=== PATIENT | male | born 1965 | race Caucasian/White ===

== ENCOUNTER → 2020-09-28 | Outpatient (CLI) | payer BC ==
[2020-09-28 14:06] LABS: BASOPHILS ABSOLUTE AUTO 0.07 K/mm3 (0.00-0.23); BASOPHILS PERCENT AUTO 1 % (0-2); EOSINOPHILS PERCENT AUTO 1 % (0-6); Hematocrit 52.2 % (37.0-53.0); Hemoglobin 17.6 g/dL (13.5-17.5); IMMATURE GRAN ABSOLUTE AUTO 0.05 K/mm3 (0.00-0.10); IMMATURE GRAN PERCENT AUTO 0 % (0-1); LYMPHOCYTES ABSOLUTE AUTO 1.82 K/mm3 (0.84-5.20); LYMPHOCYTES PERCENT AUTO 14 % (21-46); MONOCYTES ABSOLUTE AUTO 0.93 K/mm3 (0.16-1.47); MONOCYTES PERCENT AUTO 7 % (4-13); Mean Corpuscular HGB 27.9 pg (26.0-34.0); Mean Corpuscular HGB Conc 33.7 g/dL (31.5-36.5); Mean Corpuscular Volume 83 fL (80-100); NEUTROPHILS PERCENT AUTO 77 % (41-73); Platelet Count 267 K/mm3 (150-400); RDW Coefficient Variation 18.7 % (11.7-14.2); RDW Standard Deviation 52.9 fL (35.1-46.3); Red Blood Cell Count 6.31 M/mm3 (4.30-5.90); White Blood Cell Count 13.17 K/mm3 (4.00-11.30)
[2020-09-28 14:20] LABS: Alanine Aminotransfer (ALT/SGP 23 U/L (12-78); Albumin, Blood 3.9 g/dL (3.4-5.0); Alk Phos 80 U/L (40-126); Anion Gap 11 mmol/L (6-16); Aspartate Aminotrans (AST/SGOT 21 U/L (12-37); Bilirubin, Total 0.6 mg/dL (0.1-1.0); Blood Urea Nitrogen 13 mg/dL (8-24); Bun/Creatinine Ratio 12.1 (12.0-20.0); CO2, Blood 26 mmol/L (21-32); Calcium, Blood 9.5 mg/dL (8.5-10.1); Chloride, Blood 101 mmol/L (98-108); Creatinine, Blood 1.07 mg/dL (0.60-1.20); Globulin, Blood 4.1 g/dL (2.2-4.0); Glomerular Filtration Rate >60 (60-); Glucose, Blood 96 mg/dL (70-99); Potassium, Blood 4.2 mmol/L (3.5-5.5); Sodium, Blood 138 mmol/L (136-145); Troponin I <0.017 ng/mL (0.000-0.040)
== END | disposition home or self-care (01) ==
LOC: LAB EV 14:02 → LAB SHORT 14:02
PROVIDERS: Family Medicine
DX: R55 Syncope and collapse (principal)
CPT/HCPCS: 80053; 84484; 85025

== ENCOUNTER 2021-05-19 18:51 | Emergency (ER) | payer BC ==
[~2021-05-19] VITALS: Ht 182.9 cm; Wt 97.5 kg
== END 2021-05-19 20:07 | disposition home or self-care (01) ==
LOC: ER 18:51
DX: U07.1 COVID-19 (principal)
CPT/HCPCS: 71045; 99283-25

== ENCOUNTER 2021-10-18 11:02 | Inpatient (IN) | payer OTHER ==
[~2021-10-18] VITALS: Ht 182.9 cm; Wt 108.2 kg
[2021-10-18 11:46] LABS: BASOPHILS ABSOLUTE AUTO 0.08 K/mm3 (0.00-0.23); BASOPHILS PERCENT AUTO 1 % (0-2); EOSINOPHILS ABSOLUTE AUTO 0.15 K/mm3 (0.00-0.68); EOSINOPHILS PERCENT AUTO 1 % (0-6); Hematocrit 51.9 % (37.0-53.0); Hemoglobin 17.8 g/dL (13.5-17.5); IMMATURE GRAN ABSOLUTE AUTO 0.11 K/mm3 (0.00-0.10); IMMATURE GRAN PERCENT AUTO 1 % (0-1); LYMPHOCYTES PERCENT AUTO 11 % (21-46); MONOCYTES ABSOLUTE AUTO 1.36 K/mm3 (0.16-1.47); MONOCYTES PERCENT AUTO 9 % (4-13); Mean Corpuscular HGB 32.5 pg (26.0-34.0); Mean Corpuscular HGB Conc 34.3 g/dL (31.5-36.5); Mean Corpuscular Volume 95 fL (80-100); Mean Platelet Volume 11.2 fL (9.1-12.4); NEUTROPHILS ABSOLUTE AUTO 11.16 K/mm3 (1.96-9.15); NEUTROPHILS PERCENT AUTO 77 % (41-73); Platelet Count 342 K/mm3 (150-400); RDW Coefficient Variation 13.6 % (11.7-14.2); Red Blood Cell Count 5.48 M/mm3 (4.30-5.90); White Blood Cell Count 14.46 K/mm3 (4.00-11.30)
[2021-10-18] MEDS ORDERED: NEBI5 PO (11:46)
[2021-10-18 12:12] LABS: Alanine Aminotransfer (ALT/SGP 35 U/L (12-78); Albumin/Globulin Ratio 0.7 (0.8-1.8); Alk Phos 72 U/L (50-136); Anion Gap 8 mmol/L (6-16); Aspartate Aminotrans (AST/SGOT 30 U/L (12-37); Bilirubin, Total 1.4 mg/dL (0.1-1.0); Blood Urea Nitrogen 20 mg/dL (8-24); Bun/Creatinine Ratio 15.4 (12.0-20.0); CO2, Blood 23 mmol/L (21-32); Chloride, Blood 105 mmol/L (98-108); Globulin, Blood 4.5 g/dL (2.2-4.0); Glomerular Filtration Rate 57 (60-); Glucose, Blood 109 mg/dL (70-99); Potassium, Blood 4.1 mmol/L (3.5-5.5); Sodium, Blood 136 mmol/L (136-145); Total Protein, Blood 7.5 g/dL (6.4-8.2); Troponin I <0.015 ng/mL (0.000-0.040)
--- NOTE | 2021-10-18 18:23 | NUR ---
ADMIT PT ARRIVED TO ICU 14 VIA BED AT 1740. PT IS AWAKE, ALERT, AND ORIENTED. PT STOOD UP TO TRANSFER. PT DENIES ANY PAIN, OR SOB AT THIS TIME. PT PLACED ON 4L O2 NC. HR AFIB 130-160'S. ESMOLOL GTT INFUSING AT 125 MCG/KG/MIN INITIALLY. GTT TITRATED UP TO 175 MCG/KG/MIN AT THIS TIME WITHOUT IMPROVEMENT IN HR NOTED. BP STABLE. URINAL AT BEDSIDE. WILL CONTINUE TO MONITOR AND REPORT OFF TO ONCOMING RN.
--- NOTE | 2021-10-18 19:30 | NUR ---
ASSUMED CARE PATIENT LYING IN BED WATCHING TELEVISION W/ 4LPM VIA NC IN PLACE. SPO2 LOW 90'S. PATIENT HAS WALLET AND TABLET ON BEDSIDE TABLE, PHONE IN BED WITH PATIENT. BELONGINGS ARE IN A BAG PLACED IN CUPBOARD OPENING. ESMOLOL GTT @ 200MCG/KG/MIN WITH RATE 130'S-160'S AND IRREGULAR. PATIENT TRACKS TO SOUND AND GREETS STAFF UPON ENTERING THE ROOM. URINAL IS AT BEDSIDE. REPORT COMPLETED WITH DAYSHIFT RN.
[2021-10-18 20:56] LABS: U Amphetamine Screen Not Detected; U Barbituate Screen Not Detected; U Benzodiazapine Screen Not Detected; U Buprenorphine Screen Not Detected; U Cannabinoids Screen Not Detected; U Cocaine Screen Not Detected; U Methadone Screen Not Detected; U Methamphetamine Screen Not Detected; U Opiates Screen Not Detected; U Oxycodone Screen Not Detected; U Phencyclidine Screen Not Detected; U Propoxyphene Screen Not Detected
--- NOTE | 2021-10-18 21:28 | NUR ---
NITRO PARAMETERS CALL MADE TO DR. RODRIGUEZ REGARDING PATIENT'S BP OF 90/58 MAP 75 AND UPCOMING NITRO ORDER FOR 2200. MD NOTIFIED OF CURRENT MEDICATIONS ORDERED AND GIVEN FOR RVR AND ORDERS OBTAINED TO HOLD 2200 DOSE OF NITRO AND PARAMETERS TO HOLD NITRO FOR SBP OF 90 OR LESS.
[2021-10-19 03:23] LABS: Hematocrit 48.3 % (37.0-53.0); Hemoglobin 16.4 g/dL (13.5-17.5); Mean Corpuscular HGB 32.7 pg (26.0-34.0); Mean Corpuscular Volume 96 fL (80-100); Mean Platelet Volume 10.7 fL (9.1-12.4); Platelet Count 279 K/mm3 (150-400); RDW Coefficient Variation 13.7 % (11.7-14.2); Red Blood Cell Count 5.02 M/mm3 (4.30-5.90); White Blood Cell Count 10.37 K/mm3 (4.00-11.30)
[2021-10-19 03:42] LABS: Anion Gap 9 mmol/L (6-16); Blood Urea Nitrogen 20 mg/dL (8-24); Bun/Creatinine Ratio 15.3 (12.0-20.0); CHOL/HDL RATIO 6.1; CO2, Blood 20 mmol/L (21-32); Calcium, Blood 8.6 mg/dL (8.5-10.1); Chloride, Blood 108 mmol/L (98-108); Cholesterol 159 mg/dL (50-200); Creatinine, Blood 1.31 mg/dL (0.60-1.20); Glomerular Filtration Rate 56 (60-); Glucose, Blood 83 mg/dL (70-99); HDL Cholesterol 26 mg/dL (>39); LDL/HDL RATIO 4.4; Low Density Lipoprotein Chol 113 mg/dL (0-110); Magnesium, Blood 2.1 mg/dL (1.6-2.4); Potassium, Blood 4.3 mmol/L (3.5-5.5); Sodium, Blood 137 mmol/L (136-145); Triglycerides 98 mg/dL (30-160); Very Low Density Lipoprot Chol 19 mg/dL (6-32)
--- NOTE | 2021-10-19 06:02 | NUR ---
SHIFT SUMMARY PATIENT REMAINED ON ESMOLOL @ 200MCG/KG/MIN; DIGOXIN 0.5MG X 1 AND 0.25MG X 2 GIVEN THROUGHOUT SHIFT Q6H. HR DECREASED FROM 140'S-160'S DOWN TO 80'S-130'S. A FLUTTER SEEN ON TELEMETRY WITH LOWER RATE. NO CHANGES IN PATIENT SYMPTOMS T/O NIGHT. PATIENT ON 4LPM VIA NC; BRIEFLY INCREASED TO 6LPM AFTER HYPOXIC EPISODE IN MID 80'S FOLLOWING URINAL USE. LUNG SOUNDS ARE MORE COARSE ON 0400 REASSESSMENT THAN EARLIER IN THE NIGHT; POSITIVE FLUID BALANCE OF OVER 1300ML. BT HYPERACTIVE X 4 WITH NO BM DURING SHIFT. NO OTHER CHANGES DURING SHIFT.
[2021-10-19 12:49] LABS: Influenza A, PCR NEGATIVE (NEGATIVE); Influenza B, PCR NEGATIVE (NEGATIVE); Resp Syncytial Virus, PCR NEGATIVE (NEGATIVE); SARS-Cov-2 (COVID-19) PCR, MMC NEGATIVE (NEGATIVE)
--- NOTE | 2021-10-19 16:54 | NUR ---
SHIFT SUMMARY NO ACUTE CHANGES THIS SHIFT. PT HAS REMAINED AWAKE, ALERT, AND ORIENTED THIS SHIFT. PT HAS DENIED ANY CHEST PAIN OR SHORTNESS OF BREATH. PT TITRATED OFF ESMOLOL GTT THIS AM. PT HR REMAINS AFIB 100-130'S. PT HAS RECIEVED METOPROLOL IV PRN. VITAL SIGNS STABLE. PT ON ROOM AIR. IV'S SALINE LOCKED. PT USES URINAL TO VOID INDEPENDENTLY. PT REPOSITIONS SELF IN BED INDEPENDENTLY. PT TOLERATING PO INTAKE WELL. WILL CONTINUE TO MONITOR AND REPORT OFF TO ONCOMING RN.
--- NOTE | 2021-10-19 19:30 | NUR ---
ASSUMED CARE PATIENT LYING IN BED AWAKE AND WATCHING TELEVISION. PHONE, TABLET, AND WALLET ARE ON BEDSIDE TABLE. PATIENT TRACKS TO SOUND AND GREETS STAFF UPON ENTERING ROOM. NO MEDS INF IN EITHER IV. 2LPM VIA NC IN PLACE WITH SPO2 MID 90'S. HR 110'S-140'S IN AFIB. BP HYPERTENSIVE WITH SBP IN 140'S AND MAPS 90'S-100'S. URINAL AT BEDSIDE. REPORT COMPLETED WITH DAYSHIFT RN.
[2021-10-20 03:06] LABS: Hematocrit 50.1 % (37.0-53.0); Hemoglobin 17.1 g/dL (13.5-17.5); Mean Corpuscular HGB 32.3 pg (26.0-34.0); Mean Corpuscular HGB Conc 34.1 g/dL (31.5-36.5); Mean Corpuscular Volume 95 fL (80-100); Mean Platelet Volume 10.7 fL (9.1-12.4); Platelet Count 309 K/mm3 (150-400); RDW Coefficient Variation 13.2 % (11.7-14.2); RDW Standard Deviation 45.7 fL (35.1-46.3); Red Blood Cell Count 5.29 M/mm3 (4.30-5.90); White Blood Cell Count 12.09 K/mm3 (4.00-11.30)
[2021-10-20 03:30] LABS: Albumin, Blood 2.6 g/dL (3.4-5.0); Albumin/Globulin Ratio 0.7 (0.8-1.8); Bilirubin, Total 0.7 mg/dL (0.1-1.0); Bun/Creatinine Ratio 14.1 (12.0-20.0); Calcium, Blood 8.6 mg/dL (8.5-10.1); Creatinine, Blood 1.28 mg/dL (0.60-1.20); Globulin, Blood 3.9 g/dL (2.2-4.0); Phosphorus, Blood 3.6 mg/dL (2.5-4.9); Total Protein, Blood 6.5 g/dL (6.4-8.2)
[2021-10-20 03:31] LABS: C-Reactive Protein, High Sens. 36.1 mg/L (0.000-3.000)
--- NOTE | 2021-10-20 06:24 | NUR ---
SHIFT SUMMARY PATIENT REQUIRED FREQUENT DOSING OF IV METOPROLOL TO KEEP HR AROUND 100. TOTAL OF 30MG IV METOPROLOL T/O SHIFT. PATIENT WAS ON 2LPM VIA NC MOST OF SHIFT BUT REMOVED NC WHILE SLEEPING. NC REMAINED OFF D/T SPO2 MAINTAINING IN MID TO HIGH 90'S WHILE ON RA. NO OTHER MAJOR CHANGES DURING SHIFT.
--- NOTE | 2021-10-20 07:20 | NUR ---
ASSUME CARE: I assumed care of this pt at 0700 after receiving report from security shift manager RN.
--- NOTE | 2021-10-20 07:41 | NUR ---
UPDATE: This RN spoke with Dr. Souza regarding frequency of lopressor pushes and continued afib. Verbal order for Cardiology consult and dorothy huynh.
--- NOTE | 2021-10-20 07:57 | NUR ---
CONSULT: Page left with Dr. Thomas's answering service.
--- NOTE | 2021-10-20 13:01 | NUR ---
NITRO PASTE REMOVED DUE TO HYPOTENSION
--- NOTE | 2021-10-20 18:50 | NUR ---
SHIFT SUMMARY: HR 100-140's with Esmolol at 250. Pt tolerating well; he denies any complaints of chest pain or dyspnea on RA. Two doses of PRN metoprolol given with minimal effect. Nitro paste d/c's due to some hypotensive episodes. Pt up in chair for several hours today with provider's knowledge. Pt using urinal independantly with clear yellow output. No BM today. Good PO intake.
--- NOTE | 2021-10-20 19:05 | NUR ---
Assumed care. Report received from refugio RN. PT resting quietly in bed at this time. VS stable, on RA. IV pumps running Esmolol 250 mcg/kg/min and NS 10 ml/hr. Pt alert and oriented, no acute needs at this time. Will continue to monitor.
[2021-10-21 03:30] LABS: BASOPHILS ABSOLUTE AUTO 0.07 K/mm3 (0.00-0.23); BASOPHILS PERCENT AUTO 1 % (0-2); EOSINOPHILS ABSOLUTE AUTO 0.38 K/mm3 (0.00-0.68); EOSINOPHILS PERCENT AUTO 4 % (0-6); Hematocrit 48.9 % (37.0-53.0); Hemoglobin 16.6 g/dL (13.5-17.5); IMMATURE GRAN ABSOLUTE AUTO 0.06 K/mm3 (0.00-0.10); IMMATURE GRAN PERCENT AUTO 1 % (0-1); LYMPHOCYTES ABSOLUTE AUTO 1.71 K/mm3 (0.84-5.20); LYMPHOCYTES PERCENT AUTO 17 % (21-46); MONOCYTES ABSOLUTE AUTO 0.95 K/mm3 (0.16-1.47); MONOCYTES PERCENT AUTO 9 % (4-13); Mean Corpuscular HGB 32.1 pg (26.0-34.0); Mean Corpuscular HGB Conc 33.9 g/dL (31.5-36.5); Mean Corpuscular Volume 95 fL (80-100); Mean Platelet Volume 10.3 fL (9.1-12.4); NEUTROPHILS ABSOLUTE AUTO 6.92 K/mm3 (1.96-9.15); NEUTROPHILS PERCENT AUTO 69 % (41-73); Platelet Count 320 K/mm3 (150-400); RDW Coefficient Variation 13.2 % (11.7-14.2); RDW Standard Deviation 45.3 fL (35.1-46.3); Red Blood Cell Count 5.17 M/mm3 (4.30-5.90); White Blood Cell Count 10.09 K/mm3 (4.00-11.30)
[2021-10-21 03:50] LABS: Albumin, Blood 2.6 g/dL (3.4-5.0); Anion Gap 7 mmol/L (6-16); Blood Urea Nitrogen 18 mg/dL (8-24); Bun/Creatinine Ratio 13.6 (12.0-20.0); CO2, Blood 23 mmol/L (21-32); Calcium, Blood 8.5 mg/dL (8.5-10.1); Chloride, Blood 108 mmol/L (98-108); Creatinine, Blood 1.32 mg/dL (0.60-1.20); Glomerular Filtration Rate 56 (60-); Glucose, Blood 97 mg/dL (70-99); Magnesium, Blood 2.1 mg/dL (1.6-2.4); Phosphorus, Blood 3.4 mg/dL (2.5-4.9); Potassium, Blood 4.2 mmol/L (3.5-5.5); Sodium, Blood 138 mmol/L (136-145)
--- NOTE | 2021-10-21 06:01 | NUR ---
Shift summary. Pt rested quietly in bed throughout shift, on room air, VS stable. Pt alert and oriented, requires minimal assistance. IV pump settings unchanged, Esmolol running at 250 mcg/kg/min, NS 10 ml/hr. HR trended down during shift, currently 90-120s. See shift assessment for further details. Will continue to monitor and report off to dayshift RN.
--- NOTE | 2021-10-21 07:14 | NUR ---
ASSUMED CARE: PT AWAKE IN BED, APPEARS FLUSTERED, ASKS WHAT IS GOING ON WITH HIM. WANTS TO KNOW PLAN. TOLD HIM THIS RN WOULD REVIEW CHART BUT FROM WHAT WAS REPORTED BY NIGHT RN, HOSPITALIST BELIEVES THAT AFIB IS DRIVEN BY PNEUMONIA AND THAT RESOLVES, AFIB WILL RESOLVE. NIGHT RN STATED HOSPITALIST CANCELLED CARDIOLOGY CONSULT DUE TO THIS. PT IS CURRENTLY ON ESMOLOL GTT AT 250MCG/KG WITH HR OF AFIB AT 112 AT THIS TIME. DENIES FURTHER NEEDS OR CONCERNS.
--- NOTE | 2021-10-21 08:26 | NUR ---
PT COMPLAINED THAT LEFT ARM WAS GETTING ACHEY. THIS IS THE SAME ARM THAT ESMOLOL GTT IS RUNNING THROUGH. ASSESSED SITE AND ARM APPEARS TIGHT AND SWOLLEN. FLUSHED IV AND PT STATES IS NOT PAINFUL, CHECKED BLOOD RETURN AND BLOOD IS EASILY PULLED BACK FROM IV LINE. DISCONNECTED ESMOLOL AND SWITCHED TO ALTERNATE IV SITE. PT ADMITTED THAT WITH IV IN LEFT ARM HE HAD BEEN AVOIDING MOVING ARM MUCH. RELAYED TO PT THAT THIS MAY BE WHY HIS ARM IS SORE. WILL CONTINUE TO MONITOR
--- NOTE | 2021-10-21 10:54 | NUR ---
ESMOLOL GTT TITRATED DOWN TO 225 MCG/KG AND METOPROLOL IV PUSH GIVEN TO ASSIST WITH RATE CONTROL. IT IS NOTED THAT PT'S HR INCREASES TO 130S WITH ACTIVITY. PT STATES HE FEELS SOB. PROVIDED WITH 2L O2 TO ASSIST WITH THIS. WILL CONTINUE TO MONITOR
--- NOTE | 2021-10-21 17:31 | NUR ---
SHIFT SUMMARY: PT CONTINUES ON ESMOLOL GTT, CURRENTLY AT 150MCG/KG AT THIS TIME. HAS REQUIRED 5MG IV METOPROLOL PUSHES EVERY 2 HOURS WELL PO METOPROLOL BID. PT HAS EXPRESSED FRUSTRATION T/O THE DAY WITH THE SLOW PROGRESS. HR CURRENTLY AFIB AT 104. 2L O2 FOR COMFORT. ANTICOAGULATION STARTED TODAY. REASONING FOR THIS EXPLAINED TO PT AND PT AGREEABLE TO THIS TREATMENT
--- NOTE | 2021-10-21 19:10 | NUR ---
Assumed care. Report received from refugio RN. Pt resting in bed, on 02 2L/min via NC, Esmolol running at 150 mcg/kg/min, NS 10 ml/hr. Pt alert and oriented, VS stable. Will continue to monitor.
--- NOTE | 2021-10-22 02:08 | NUR ---
NOTED: PT HAD REMOVED HIS CARDIAC LEADS AND OXYIMETER. WHEN ENTRYING ROOM, PT WAS SITTING ON TOILET WITH ALL WIRES AND TUBINGS DISCONNECTED. PT HAD DISCONNECTED HIS IV'S AND HAD A CLAVE REMOVED FROM LEFT HAND IV. PT WAS BLEEDING FROM IV WITHOUT PT'S ACKNOWLEDGING THAT THIS WAS OCCURRING. PT STATED THAT HE HAD TO URINATE AND NOBODY CAME TO HELP HIM. PT HAD BOTH URINALS WITHIN HIS REACH, AND HAD NOT USED HIS CALL LIGHT TO REQUEST ASSIST. NEW CLAVE PLACED, AND FLUSHED. AFTER RETURNING TO BED, IV'S RESTARTED. PT CAUTIONED TO NOT GET OUT OF BED WITHOUT ASSIST AND TO USE HIS CALL LIGHT WHEN HE NEEDS ASSIST.
[2021-10-22 03:34] LABS: BASOPHILS ABSOLUTE AUTO 0.07 K/mm3 (0.00-0.23); BASOPHILS PERCENT AUTO 1 % (0-2); EOSINOPHILS ABSOLUTE AUTO 0.35 K/mm3 (0.00-0.68); EOSINOPHILS PERCENT AUTO 3 % (0-6); Hematocrit 52.8 % (37.0-53.0); Hemoglobin 17.5 g/dL (13.5-17.5); IMMATURE GRAN ABSOLUTE AUTO 0.05 K/mm3 (0.00-0.10); IMMATURE GRAN PERCENT AUTO 0 % (0-1); LYMPHOCYTES ABSOLUTE AUTO 1.76 K/mm3 (0.84-5.20); LYMPHOCYTES PERCENT AUTO 16 % (21-46); MONOCYTES ABSOLUTE AUTO 1.12 K/mm3 (0.16-1.47); MONOCYTES PERCENT AUTO 10 % (4-13); Mean Corpuscular HGB 32.8 pg (26.0-34.0); Mean Corpuscular HGB Conc 33.1 g/dL (31.5-36.5); Mean Corpuscular Volume 99 fL (80-100); Mean Platelet Volume 10.5 fL (9.1-12.4); NEUTROPHILS ABSOLUTE AUTO 7.78 K/mm3 (1.96-9.15); NEUTROPHILS PERCENT AUTO 70 % (41-73); Platelet Count 277 K/mm3 (150-400); RDW Coefficient Variation 13.2 % (11.7-14.2); RDW Standard Deviation 48.1 fL (35.1-46.3); Red Blood Cell Count 5.33 M/mm3 (4.30-5.90); White Blood Cell Count 11.13 K/mm3 (4.00-11.30)
[2021-10-22 03:57] LABS: Albumin, Blood 2.7 g/dL (3.4-5.0); Albumin/Globulin Ratio 0.7 (0.8-1.8); Bilirubin, Total 0.6 mg/dL (0.1-1.0); Bun/Creatinine Ratio 14.3 (12.0-20.0); Calcium, Blood 8.6 mg/dL (8.5-10.1); Creatinine, Blood 1.33 mg/dL (0.60-1.20); Globulin, Blood 3.9 g/dL (2.2-4.0); Magnesium, Blood 2.5 mg/dL (1.6-2.4); Phosphorus, Blood 3.2 mg/dL (2.5-4.9); Potassium, Blood 4.8 mmol/L (3.5-5.5); Total Protein, Blood 6.6 g/dL (6.4-8.2)
--- NOTE | 2021-10-22 06:05 | NUR ---
Shift summary. Pt rested in bed throughout shift, up to stretch and use urinal several times. On 02, 2 L/min via NC. IV in L/hand and R/ac, Esmolol running at 100 mcg/kg/min. Per Dr. Jones, plan is to titrate esmolol off this am. PO metoprolol ordered Q6PRN to help with rate control. VS stable throughout shift, see shift assessment/notes for further details. Will continue to monitor and report off to dayshift RN.
--- NOTE | 2021-10-22 08:00 | NUR ---
ASSUMING PT CARE: REPORT RECEIVED. PT LAYING IN BED, AWAKES WHEN STAFF ENTERS ROOM. ALERT,MINIMALLY INTERACTIVE, APATHETIC W/ CARE. ESMOLOL @ 50mcg/kg/min. MONITOR INDICATES AFIB W/ HR 98-130s. PRN & SCHEDULED METOPROLOL GIVEN. WILL CONTINUE TO ADDRESS RATE CONTROL W/ PRN METOPROLOL & TITRATE ESMOLOL gtt DOWN PT TOLERATES. WILL CONTINUE TO MONITOR & REPORT APPROPRIATE.
--- NOTE | 2021-10-22 12:15 | NUR ---
HOSP ROUNDING: ISTRATE @ BEDSIDE FOR AM ROUNDS. PER ISTRATE, IF PT REMAINS OFF ESMOLOL, HE CAN BE CHANGED TO PCU STATUS THIS AFTERNOON. MONITOR INDICATES AFIB W/ RATE 90s-120s. PT CONTINUES TO DENY CP, SOB.
--- NOTE | 2021-10-22 16:40 | NUR ---
UPDATED ISTRATE ON PT's POSITIVE PROGRESSION, HR MAINTAINING 130s-90s W/ESMOLOL OFF FOR 5hrs & NO IVP METOPROLOL. PER ISTRATE, CONTINUE TO GIVE IVP METOPROLOL TO MANAGE HR & IF PT CONTINUES TO STABILIZE, HE WILL BE ABLE TO BE DC'D HOME TOMORROW W/ PO ABX. PT UPDATED & SEEMED RECEPTIVE & GLAD TO HEAR HE MAY BE DC'D TOMORROW. WILL CONTINUE TO MONITOR & REPORT APPROPRIATE.
--- NOTE | 2021-10-22 18:47 | NUR ---
SHIFT SUMMARY: PT IS ANXIOUS TO BE DC'D HOME TOMORROW. PT IS ABLE TO STAND & PIVOT TO CHAIR & USE URINAL INDEPENDENTLY. AFIB CONTINUES & HR HAS BEEN CONSISTENTLY 130s-90s AFTER ESMOLOL DC'D. HOWEVER OVER THE PAST 2hrs HR HAS INC MOMENTARILY TO THE 150s WHILE AT REST. PT MEDICATED W/ PRN PO & IV METOPROLOL & RATE HAS SINCE RETURNED TO 130s-90s. PT CONTINUES TO DENY CP OR SOB. WILL DISCUSS W/ ONCOMING RN. SEE PREVIOUS NOTATION FOR PT PROGRESSION.
--- NOTE | 2021-10-22 19:15 | NUR ---
Assumed care. Report received from dayshift RN. Pt in bed at this time, on room air. Pt alert and oriented, call light within reach. VS stable, no acute needs at this time. NS 10ml/hr running. Will continue to monitor.
[2021-10-23 03:36] LABS: BASOPHILS ABSOLUTE AUTO 0.07 K/mm3 (0.00-0.23); BASOPHILS PERCENT AUTO 1 % (0-2); EOSINOPHILS ABSOLUTE AUTO 0.27 K/mm3 (0.00-0.68); EOSINOPHILS PERCENT AUTO 2 % (0-6); Hematocrit 52.8 % (37.0-53.0); Hemoglobin 18.4 g/dL (13.5-17.5); IMMATURE GRAN ABSOLUTE AUTO 0.06 K/mm3 (0.00-0.10); IMMATURE GRAN PERCENT AUTO 1 % (0-1); LYMPHOCYTES ABSOLUTE AUTO 1.88 K/mm3 (0.84-5.20); LYMPHOCYTES PERCENT AUTO 16 % (21-46); MONOCYTES ABSOLUTE AUTO 1.13 K/mm3 (0.16-1.47); MONOCYTES PERCENT AUTO 10 % (4-13); Mean Corpuscular HGB 32.6 pg (26.0-34.0); Mean Corpuscular HGB Conc 34.8 g/dL (31.5-36.5); Mean Platelet Volume 10.5 fL (9.1-12.4); NEUTROPHILS ABSOLUTE AUTO 8.28 K/mm3 (1.96-9.15); NEUTROPHILS PERCENT AUTO 71 % (41-73); Platelet Count 355 K/mm3 (150-400); RDW Coefficient Variation 13.2 % (11.7-14.2); RDW Standard Deviation 44.8 fL (35.1-46.3); Red Blood Cell Count 5.65 M/mm3 (4.30-5.90); White Blood Cell Count 11.69 K/mm3 (4.00-11.30)
[2021-10-23 03:39] LABS: Mean Corpuscular Volume 94 fL (80-100)
[2021-10-23 03:53] LABS: Anion Gap 5 mmol/L (6-16); Blood Urea Nitrogen 18 mg/dL (8-24); Bun/Creatinine Ratio 15.1 (12.0-20.0); CO2, Blood 25 mmol/L (21-32); Calcium, Blood 8.9 mg/dL (8.5-10.1); Chloride, Blood 106 mmol/L (98-108); Creatinine, Blood 1.19 mg/dL (0.60-1.20); Glomerular Filtration Rate >60 (60-); Glucose, Blood 104 mg/dL (70-99); Magnesium, Blood 2.3 mg/dL (1.6-2.4); Phosphorus, Blood 3.2 mg/dL (2.5-4.9); Potassium, Blood 4.1 mmol/L (3.5-5.5); Sodium, Blood 136 mmol/L (136-145)
--- NOTE | 2021-10-23 05:19 | NUR ---
TRANSFER NOTE. PT TRANSFER TO PCU 3. PT ON RA, VS STABLE. PER DR. ESTRADA, ULTRASOUND OF LEFT ARM ORDERED FOR PAIN/REDNESS/SWELLING DURING SHIFT. PT REPORTS 4 OUT OF 10 PAIN AND NUMBNESS IN LEFT HAND. NO OTHER ACUTE NEEDS AT TIME OF TRANSFER, SEE SHIFT ASSESSMENT FOR FURTHER DETAILS.
--- NOTE | 2021-10-23 05:59 | NUR ---
PATIENT TRANSFERRED FROM ICU AT APPROX 0500. VSS. AFIB IN THE LOW 100'S WITH INCREASES WITH MOVEMENT UP TO 120'S BUT BACK DOWN SHORTLY AFTER. ON RA. VODIING WELL PER URINAL. LEFT FOREARM RED,SWOLLEN AND WARM TO TOUCH. IS ANXIOUS TO GO HOME. WILL CONTINUE PLAN OF CARE UNTIL REPORT GIVEN TO JOAQUIN BARTON.
--- NOTE | 2021-10-23 09:05 | NUR ---
UPDATE AT 0900, PT REPORTED A PAIN AT THE IV SITE OF HIS LEFT HAND. PT WAS RECIEIVING [id number] PER EMAR. THIS RN STOPPED THE IV AND ASSESSED THE SITE. IV SITE APPEARED RED AND SLIGHLTY SWOLLEN. IV FLUSHED AND SALINE LOCKED, MED ON STANDBY. DR WREN NOTIFIED THAT SAS DEVELOPER WAS IN THE ROOM GETTING IMAGES OF LEFT ARM. NOTIFIED THAT PT REPORTED "TINGLING OF THE TIPS OF FINGER" OF PT LEFT HAND. DR INSTRUCTED THIS RN TO REMOVE IV IF THE PT HR IS UNDER 105. THIS RN INFORMED DR THAT PT WAS RECIEVING MEDS VIA IV, DR INFORMED THIS RN THT MEDS WILL BE SWITCH TO PO.
[2021-10-23] MEDS ORDERED: METO100ER PO (11:38)
[2021-10-23] MEDS ORDERED: Acetaminophen325 M1 PO (11:39)
[2021-10-23] MEDS ORDERED: ASPI81CH PO (11:40)
[2021-10-23] MEDS ORDERED: ATOR40TA PO (11:40)
[2021-10-23] MEDS ORDERED: CEFP200 PO (11:41)
[2021-10-23] MEDS ORDERED: FURO20 PO (11:41)
[2021-10-23] MEDS ORDERED: Lisinopril2.5 MG PO (11:42)
[2021-10-23] MEDS ORDERED: MELATONIN 3 MG1 EACH PO (11:42)
[2021-10-23] MEDS ORDERED: ONDA4ODT MM (11:44)
[2021-10-23] MEDS ORDERED: XARELTO20 MG PO (11:45)
[2021-10-23] MEDS ORDERED: ALDACTONE25 MG PO (11:46)
[2021-10-23] MEDS ORDERED: VISBIOME 112.51 EACH PO (11:49)
--- NOTE | 2021-10-23 12:14 | NUR ---
DISCHARGE UPDATE DISCHARGE INSTRUCTIONS GONE OVER WITH PT AT 1155. PT DISCHARGED AT 1205 AND LEFT UNIT VIA WHEELCHAIR. PT DISCHARGE PACKET IN BAG ALONG WITH PT BELONGINIGS AND WITH PT DURING DISCHARGE. PT FAMILY MEMBER PICKED PT UP AT THE [facility]. PT WAS ABLE TO TRANSFER SELF TO AND FROM WHEELCHAIR.
== END 2021-10-23 12:12 | disposition home or self-care (01) | DRG 871 ==
LOC: ER 11:02 → ICUW 15:57 → PCU 10-23 05:15
PROVIDERS: Family Medicine; Nurse Practitioner Acute Care; Physician Assistant; ADMIT Hospitalist
DX: A41.9 Sepsis, unspecified organism (principal); J18.9 Pneumonia, unspecified organism; I50.23 Acute on chronic systolic (congestive) heart failure; I48.20 Chronic atrial fibrillation, unspecified; Z20.822 Contact with and (suspected) exposure to COVID-19; E66.01 Morbid (severe) obesity due to excess calories; R91.8 Other nonspecific abnormal finding of lung field; Z86.16 Personal history of COVID-19; Z79.899 Other long term (current) drug therapy; Z87.891 Personal history of nicotine dependence
CPT/HCPCS: 0241U; 36415; 71045; 71046; 71260; 80048; 80053; 80061; 80069; 83735; 83880; 84100; 84145; 84443; 84484; 85025; 85027; 85379; 86141; 93005; 93010; 93306; 93971; 96365-59; 96375-59; 99285-25; A9270; J0696; J1160; J1644; J1940; J7030; J7050; Q9967

== ENCOUNTER 2021-12-16 11:09 | Day surgery (SDC) | payer OTHER ==
[~2021-12-16] VITALS: Ht 182.9 cm; Wt 107.7 kg
[~2021-12-16 11:09] MED LIST: ALDACTONE25 MG PO; ASPI81CH PO; ATOR40TA PO; Acetaminophen325 M1 PO; CEFP200 PO; FURO20 PO; Lisinopril2.5 MG PO; MELATONIN 3 MG1 EACH PO; METO100ER PO; NEBI5 PO; ONDA4ODT MM; VISBIOME 112.51 EACH PO; XARELTO20 MG PO
[2021-12-16] MEDS ORDERED: Amiodarone HCl200 MG PO (11:30)
[2021-12-16] MEDS ORDERED: ENTRESTO 24 MG1 EACH PO (11:30)
[2021-12-16] MEDS ORDERED: Hair, Skin & N1 EACH PO (11:30)
[2021-12-16] MEDS ORDERED: NEBI10 PO (11:31)
--- NOTE | 2021-12-16 13:15 | NUR ---
PT ALERT, AWAKE, AND TALKING. SISTER HERE.
--- NOTE | 2021-12-16 13:50 | NUR ---
pt awake and getting dressed. repeat ekg done, nsr. pt offers no c/o's. saline lock rmoved with catheter intact. discharge instructions reviewed with pt and sister. pt to private vehicle per w/c with one staff.
[2022-02-01] MEDS ORDERED: VITAMIN D3 PO (13:02)
[2022-02-01] MEDS ORDERED: ENTRESTO 24 MG1 EACH PO (13:04)
[2022-02-01] MEDS ORDERED: KAPSPARGO SPRI100 MG PO (13:04)
[2022-02-01] MEDS ORDERED: TESTOSTERONE CYPIONA IM (13:07)
[2022-02-02] MEDS ORDERED: ZINC15 PO (08:33)
== END 2021-12-16 23:31 | disposition home or self-care (01) ==
LOC: MHTC 11:09 → ORD 12:00 → ORSCSDS 12:00 → MHTC 23:31
DX: I48.19 Other persistent atrial fibrillation (principal); I42.9 Cardiomyopathy, unspecified; I45.2 Bifascicular block; I50.9 Heart failure, unspecified; K21.9 Gastro-esophageal reflux disease without esophagitis; Z87.891 Personal history of nicotine dependence
CPT/HCPCS: 92960; 93005; 93010; J2704; J7030

== ENCOUNTER 2022-02-20 23:06 | Inpatient (IN) | payer OTHER ==
[~2022-02-20] VITALS: Ht 180.3 cm; Wt 102.8 kg
[~2022-02-20 23:06] MED LIST changes: +Amiodarone HCl200 MG PO; +ENTRESTO 24 MG1 EACH PO; +Hair, Skin & N1 EACH PO; +KAPSPARGO SPRI100 MG PO; +NEBI10 PO; +TESTOSTERONE CYPIONA IM; +VITAMIN D3 PO; +ZINC15 PO
[2022-02-20] MEDS ORDERED: DIGOX250 MCG PO (23:17)
[2022-02-20 23:31] LABS: BASOPHILS ABSOLUTE AUTO 0.09 K/mm3 (0.00-0.23); BASOPHILS PERCENT AUTO 1 % (0-2); EOSINOPHILS ABSOLUTE AUTO 0.27 K/mm3 (0.00-0.68); EOSINOPHILS PERCENT AUTO 2 % (0-6); Hematocrit 48.4 % (37.0-53.0); Hemoglobin 16.5 g/dL (13.5-17.5); IMMATURE GRAN ABSOLUTE AUTO 0.07 K/mm3 (0.00-0.10); IMMATURE GRAN PERCENT AUTO 1 % (0-1); LYMPHOCYTES ABSOLUTE AUTO 1.65 K/mm3 (0.84-5.20); LYMPHOCYTES PERCENT AUTO 13 % (21-46); MONOCYTES ABSOLUTE AUTO 1.16 K/mm3 (0.16-1.47); MONOCYTES PERCENT AUTO 9 % (4-13); Mean Corpuscular HGB 30.4 pg (26.0-34.0); Mean Corpuscular HGB Conc 34.1 g/dL (31.5-36.5); Mean Corpuscular Volume 89 fL (80-100); Mean Platelet Volume 11.5 fL (9.1-12.4); NEUTROPHILS ABSOLUTE AUTO 9.14 K/mm3 (1.96-9.15); NEUTROPHILS PERCENT AUTO 74 % (41-73); Platelet Count 247 K/mm3 (150-400); RDW Coefficient Variation 15.3 % (11.7-14.2); RDW Standard Deviation 50.1 fL (35.1-46.3); Red Blood Cell Count 5.43 M/mm3 (4.30-5.90); White Blood Cell Count 12.38 K/mm3 (4.00-11.30)
[2022-02-20 23:51] LABS: Albumin, Blood 3.7 g/dL (3.4-5.0); Albumin/Globulin Ratio 0.9 (0.8-1.8); Bilirubin, Total 1.2 mg/dL (0.1-1.0); Bun/Creatinine Ratio 14.3 (12.0-20.0); Calcium, Blood 9.1 mg/dL (8.5-10.1); Creatinine, Blood 1.19 mg/dL (0.60-1.20); Globulin, Blood 4.3 g/dL (2.2-4.0)
--- NOTE | 2022-02-21 02:40 | NUR ---
ASSUMED CARE PT ARRIVED AT APPROX 0240. PT WAS DIAPHORETIC WITH SEVERE CHEST PAIN. HR WAS ELEVATED IN THE 130'S. REPORTING PAIN OF 8-9/10 (SHARP). AT BESIDE TO HELP WITH QUESTIONS. REPORTS THAT HE WAS JUST IN [facility] FOR [facility] ON 02/16 WHERE HE HAS RIGHT WRIST PUNTURE R/L GROIN PUNCTURES. ADVISED NOT TO GET UP OUT OF BED WITHOUT HELP DUE TO PAIN MEDS AND CHEST PAIN. CALL LIGHT IS WITHIN REACH.
[2022-02-21] MEDS ORDERED: CLOP75 PO (02:58)
[2022-02-21] MEDS ORDERED: Isosorbide Mono30 MG PO (02:58)
--- NOTE | 2022-02-21 03:02 | NUR ---
CALLED DR EDGAR REGARDING HEART RATE 130-140'S AND CHEST PAIN. SAID TO WAIT FOR DIGOXIN TO START WORKING AND GIVE FENTYNAL FOR PAIN.
--- NOTE | 2022-02-21 03:13 | NUR ---
CALLED DR EDGAR TO GET 1X DOSE OF FENT. GAVE ORDER OF 1MG OF DILAUDID X1 IV AND 1X DOSE OF FENT 25-50MG IV X1 IF NEEDED IF PAIN NOT RESOLVED. NO HEPARIN CONSULT. DOCTOR HERVE TO CHECK RECENT TROP LAB WHEN RESULTS IN.
[2022-02-21 03:49] LABS: BASOPHILS ABSOLUTE AUTO 0.08 K/mm3 (0.00-0.23); BASOPHILS PERCENT AUTO 1 % (0-2); EOSINOPHILS ABSOLUTE AUTO 0.16 K/mm3 (0.00-0.68); EOSINOPHILS PERCENT AUTO 1 % (0-6); Hematocrit 46.1 % (37.0-53.0); Hemoglobin 15.5 g/dL (13.5-17.5); IMMATURE GRAN ABSOLUTE AUTO 0.09 K/mm3 (0.00-0.10); IMMATURE GRAN PERCENT AUTO 1 % (0-1); LYMPHOCYTES ABSOLUTE AUTO 1.05 K/mm3 (0.84-5.20); LYMPHOCYTES PERCENT AUTO 7 % (21-46); MONOCYTES ABSOLUTE AUTO 1.59 K/mm3 (0.16-1.47); MONOCYTES PERCENT AUTO 11 % (4-13); Mean Corpuscular HGB 30.2 pg (26.0-34.0); Mean Corpuscular HGB Conc 33.6 g/dL (31.5-36.5); Mean Corpuscular Volume 90 fL (80-100); Mean Platelet Volume 11.4 fL (9.1-12.4); NEUTROPHILS ABSOLUTE AUTO 11.97 K/mm3 (1.96-9.15); NEUTROPHILS PERCENT AUTO 80 % (41-73); Platelet Count 232 K/mm3 (150-400); RDW Coefficient Variation 15.7 % (11.7-14.2); RDW Standard Deviation 50.6 fL (35.1-46.3); Red Blood Cell Count 5.13 M/mm3 (4.30-5.90); White Blood Cell Count 14.94 K/mm3 (4.00-11.30)
[2022-02-21 04:11] LABS: Albumin, Blood 3.3 g/dL (3.4-5.0); Albumin/Globulin Ratio 0.9 (0.8-1.8); Bilirubin, Total 1.3 mg/dL (0.1-1.0); Bun/Creatinine Ratio 16.2 (12.0-20.0); Calcium, Blood 8.6 mg/dL (8.5-10.1); Creatinine, Blood 1.05 mg/dL (0.60-1.20); Globulin, Blood 3.7 g/dL (2.2-4.0); Potassium, Blood 4.1 mmol/L (3.5-5.5)
[2022-02-21 04:25] LABS: Digoxin (Lanoxin) 14.19 ug/mL (0.80-2.00)
--- NOTE | 2022-02-21 05:16 | NUR ---
CALLED DR EDGAR REGARDING CRITICAL TROP OF 5450 AND DIGOXIN OF 14.9. ORDER TO DC DIGOXIN.
--- NOTE | 2022-02-21 05:48 | NUR ---
CONTACTED DR EDGAR REGARDING HR IN THE 130 UP TO 160'S. ORDER FOR LOPRESSOR IV 5MG ONE TIME FOR NOW.
--- NOTE | 2022-02-21 06:00 | NUR ---
WHEN PULLING LOPRESSOR FROM [place] AT 0555 PT WAS NOT IN SYSTEM, AND WAS UNABLE TO BE LOCATED IN SEARCH. PHARMACY WAS CONTACTED ABOUT PROBLEM.
--- NOTE | 2022-02-21 06:53 | NUR ---
SHIFT SUMMARY PT IS ALERT AND ORIENTED. BP, TEMP, SPO2 >92% ON 4L NC ARE STABLE. HR HAS BEEN ELEVATED AND WAS REPORTED TO DR EDGAR LOPRESSOR IV GIVEN. REPORTS RESTING CHEST PAIN 3/10 AND SHARP RECURRENT PAIN 8-9/10. MEDICATED PER EMAR. CARDIOLOGY CONSULT WAS CALLED INTO [facility]. CRITICAL LABS WERE CALLED INTO DR EDGAR. PT NOW SITTING AT EDGE OF THE BED LEANING FORWARD AND REPORTS LESS PAIN. CALL LIGHT IS WITHIN REACH.
[2022-02-21 07:45] LABS: Anti-Xa UFH, PHA Monitoring 0.82 IU/mL; International Normalized Ratio 1.19; Prothrombin Time Results 12.4 Sec (9.7-11.5)
--- NOTE | 2022-02-21 15:32 | NUR ---
UPDATE BP LOW. PT ASYMPTOMATIC. PT DENIES ANY CP AT THIS TIME. HR 120-[address] GIBBS CALLED AND UPDATED. NEW ORDERS FOR 250ML BOLUS. WILL CONTINUE TO MONITOR CLOSELY
--- NOTE | 2022-02-21 18:00 | NUR ---
DR. GIBBS TO ROOM TO EVALUATE DECREASING BLOOD PRESSURE AND INCREASED HEART RATE. STAT ECHO ORDERED. WILL CONTINUE TO MONITOR AND TREAT.
--- NOTE | 2022-02-21 18:27 | NUR ---
Shift Summary Assumed care from Sonia @1977. Pt was sitting upright in bed leaning over bedside table. Reports pain radiating to back relieved by leaning over table. HR afib ranging from 120's-150's, very irregular and inconsistent. BP was increased to 119 systolic after 250ml fluid bolus, but decreased back down into the 80's around 1700. He reports occasional chest pain and describes it as "sharp, quick, like a hiccup." Dr. Rocha ordered a STAT echocardiogram that is being performed right now to rule out a pericardial effusion. Results will be called and told to him as they arrive, will pass onto oncoming RN.
[2022-02-21 20:03] LABS: Digoxin (Lanoxin) 2.77 ug/mL (0.80-2.00)
--- NOTE | 2022-02-21 20:30 | NUR ---
UPDATE CRITICAL DIGOXIN CALLED TO THIS RN. CALL PLACED TO DR. GIBBS WITH RESULTS. NO NEW ORDERS AT THIS TIME. PATIENT CONTINUES TO DENY CHEST PAIN AND STATES "IT ONLY HURTS WHEN I BREATHE DEEP". AMIO GTT INFUSING PER EMAR. SOFT BPs. TELE READING AFIB 120s. OTHERWISE PATIENT DENIES NEEDS AT THIS TIME. CALL LIGHT IN REACH, BED IN LOW POSITIION.
--- NOTE | 2022-02-22 01:32 | NUR ---
UPDATE PATIENT'S BP DROPPED TO 86/76, 250ml BOLUS ADMINISTERED PER EMAR. AFTER BOLUS COMPLETE, PATIENT'S BP UP TO 120/87. PATIENT STATES "I FEEL A LITTLE BIT BETTER" AFTER FLUID ADMINISTRATION.
--- NOTE | 2022-02-22 05:50 | NUR ---
SHIFT SUMMARY ASSUMED CARE OF PT AT 1900. SON AT BEDSIDE VISITING WITH PT. PT ALERT AND ORIENTED, PLEASANT TO INTERACT WITH. APPEARS DIAPHORETIC AND COOL TO THE TOUCH. DENIES CHEST PAIN AND CHEST PRESSURE, BUT REPORTS PAIN WITH "DEEP BREATHING OR MOVEMENT". PT RATES IT 2/10 AND THAT IT IS RELIEVED BY DECREASED ACTIVITY AND BREATHING SLOW. PT DENIES SOB. CURRENTLY ON 3.6 L VIA NC, O2 SATS >94%. HEART RHYTHM AFIB W/HR IN 120'S. SOFT BP; SYSTOLIC IN 80'S - 90'S, DIASTOLIC IN 70'S, MAP >65. NS X1 GIVEN PER EMAR; BP IMPROVED. AMIODORONE AND HEPARIN INFUSING PER EMAR. PT HAS BEEN USING URINAL AT BEDSIDE INDEPENDENTLY. URINE OUPUT 1050. PT DENIES BM. CALL LIGHT WITHIN REACH AND BED IN LOWEST POSITION.
[2022-02-22 06:07] LABS: Hematocrit 41.6 % (37.0-53.0); Hemoglobin 14.1 g/dL (13.5-17.5); Mean Platelet Volume 11.2 fL (9.1-12.4); Platelet Count 201 K/mm3 (150-400)
--- NOTE | 2022-02-22 06:17 | NUR ---
NCA CERTIFIED CONCIERGE DOCUMENTATION THIS RN HAS REVIEWED ALL NCA CERTIFIED CONCIERGE DOCUMENTATION AND THIS RN AGREES
[2022-02-22 14:32] LABS: BASOPHILS ABSOLUTE AUTO 0.06 K/mm3 (0.00-0.23); BASOPHILS PERCENT AUTO 1 % (0-2); EOSINOPHILS PERCENT AUTO 2 % (0-6); Hematocrit 46.6 % (37.0-53.0); Hemoglobin 15.3 g/dL (13.5-17.5); IMMATURE GRAN ABSOLUTE AUTO 0.06 K/mm3 (0.00-0.10); IMMATURE GRAN PERCENT AUTO 1 % (0-1); LYMPHOCYTES PERCENT AUTO 10 % (21-46); MONOCYTES ABSOLUTE AUTO 1.35 K/mm3 (0.16-1.47); MONOCYTES PERCENT AUTO 12 % (4-13); Mean Corpuscular HGB 30.4 pg (26.0-34.0); Mean Corpuscular HGB Conc 32.8 g/dL (31.5-36.5); Mean Corpuscular Volume 93 fL (80-100); Mean Platelet Volume 11.4 fL (9.1-12.4); NEUTROPHILS ABSOLUTE AUTO 8.22 K/mm3 (1.96-9.15); NEUTROPHILS PERCENT AUTO 75 % (41-73); Platelet Count 252 K/mm3 (150-400); RDW Coefficient Variation 16.1 % (11.7-14.2); RDW Standard Deviation 54.2 fL (35.1-46.3); Red Blood Cell Count 5.03 M/mm3 (4.30-5.90); White Blood Cell Count 10.99 K/mm3 (4.00-11.30)
[2022-02-22 15:08] LABS: Anion Gap 9 mmol/L (6-16); Blood Urea Nitrogen 24 mg/dL (8-24); CO2, Blood 23 mmol/L (21-32); Chloride, Blood 101 mmol/L (98-108); Digoxin (Lanoxin) 1.78 ug/mL (0.80-2.00); Glomerular Filtration Rate 70 (60-); Glucose, Blood 97 mg/dL (70-99); Potassium, Blood 3.9 mmol/L (3.5-5.5); Sodium, Blood 133 mmol/L (136-145)
--- NOTE | 2022-02-22 17:48 | NUR ---
Shift Summary No acute changes today. Pt is resting comfortably, denies any chest pain or SOB. He states that he feels much better and hasn't had any pain or weakness today. HR has sustained in the 110's-120's after metoprolol was restarted this AM. Lung sounds clear, RA-4L NC. Amio and Heparin gtt's are still running at this time, will report to oncoming RN.
--- NOTE | 2022-02-23 05:57 | NUR ---
SHIFT SUMMARY PATIENT ALERT AND ORIENTED x4, ABLE TO MAKE NEEDS NEEDS KNOWN TO STAFF, USES CALL LIGHT APPROPRIATELY. VSS. TELE READING AFIB 110s. BRIDGED TO PO AMIODERONE OVERNIGHT. DENIES CHEST PAIN. HEPARIN GTT INFUSING. USING URINAL INDEPENDENTLY WITH ADEQUATE URINE OUTPUT. NO OTHER SIGNIFICANT CHANGES THIS SHIFT. WILL REPORT TO DAY SHIFT RN.
--- NOTE | 2022-02-23 08:27 | NUR ---
ASSUMED CARE OF PT, REPORT RCV'D FROM ORALIA HOOPER. PT ALERT AND ORIENTED, WITHDRAWN WITH FLAT AFFECT. PT REQUESTING TO GO HOME, EXPRESSES FRUSTRATION WITH HAVING TO STAY IN HOSPITAL. PER HOSPITALIST, PT MAY BE DISCHARGED IF CARDIOLOGY AGREES. PT STATES UNDERSTANDING. HEPARIN @ 17 UNITS/HR. PATIENT DENIES CHEST PAIN/SHORTNESS OF BREATH. DENIES NEEDS AT THIS TIME. SEE FULL SHIFT ASSESSMENT.
--- NOTE | 2022-02-23 13:49 | NUR ---
HEPARIN GTT INCREASED TO 24 UNITS PER PHARMACY
--- NOTE | 2022-02-23 16:17 | NUR ---
SHIFT SUMMARY NO ACUTE CHANGES T/O SHIFT. PT REMAINS ALERT AND ORIENTED, WITHDRAWN BUT COOPERATIVE WITH CARE. CONTINUES TO DENY CHEST PAIN AND SHORTNESS OF BREATH. SATS>95% ON ROOM AIR. VSS. HEPARIN REMAINS INFUSING AT 24 UNITS (87 KG DOSE WT). WILL REPORT TO ONCOMING NURSE.
[2022-02-23 19:24] LABS: Anti-Xa UFH, PHA Monitoring 0.38 IU/mL
--- NOTE | 2022-02-23 22:43 | NUR ---
Assumed care of pt at 1900. A/Ox4. Denies any pain, CP/pressure. Resp WNL, Afib on tele 110-120 at beginning of shift. Heparin gtt infusing per emar. L forearm IV d/c due to proximal redness/tenderness. Patient eager to get home, but compliant with care. VSS.
--- NOTE | 2022-02-24 05:50 | NUR ---
SHIFT SUMMARY No changes from previous assessment. Patient slept for most of the night. No CP/pressure or SOB. Will report to dayshift RN.
[2022-02-24] MEDS ORDERED: METO100 PO (10:07)
[2022-02-24] MEDS ORDERED: Amiodarone HCl200 MG PO (10:07)
[2022-02-24] MEDS ORDERED: ASPI81CH PO (10:08)
[2022-02-24] MEDS ORDERED: ATOR80 PO (10:08)
[2022-02-24] MEDS ORDERED: COLCHICINE0.6 MG PO (10:09)
--- NOTE | 2022-02-24 10:31 | NUR ---
DISCHARGE PT HAS BEEN IRRITABLE WITH STAFF THIS MORNING COMPLAINING THAT HE WANTS TO GO HOME. DR. Sauceda SAW HIM EARLY THIS MORNING AND SAID THAT HE CAN DISCHARGE. WENT IN TO EXPLAIN TO PT THAT THE HOSPITALIST STILL HAS TO SEE HIM AND PUT THE ORDER IN, THEN THE NURSING STAFF CAN START THE DISCHARGE PAPERWORK. PT BECAME VERY IRRITATED ALL OF A SUDDEN, COMPLAINING THAT AT [facility] IT ONLY TOOK 2 HOURS. ASSURED PT THAT WE WILL GET HIM OUT SOON POSSIBLE, BUT INTERRUPTIONS DO OCCUR BECAUSE WE HAVE TO TAKE CARE OF THE OTHER PTS TOO. PT REMAINED IRRITABLE AND ASKED TO SPEAK TO DATABASE PROGRAMMER ANALYST, SHELL INFORMED. AFTER ABOUT 10 MINUTES, WENT BACK IN ROOM TO GIVE PT HIS MORNING MEDS AND PT HAD CALMED DOWN AND APOLOGIZED FOR HIS BEHAVIOR. REASSURED PT AGAIN THAT SOON THE ORDER GOES THROUGH WE WOULD START WORKING ON HIS DISCHARGE AND GET HIM HOME. ONCE DISCHARGE ORDER WAS PLACED, CALLED [facility] TO SCHEDULE FOLLOW UP AND THEY SAID THEY'LL HAVE THEIR SCHEDULING DEPARTMENT CALL HIM BACK. CONFIRMED CALL BACK NUMBER FOR PT. FOR PT'S PCP FOLLOW UP HE STATED HE WILL SCHEDULE FOLLOW UP WITH THEM BECAUSE HE HAS TO GO BY THE OFFICE TODAY ANYWAY. NEW MEDICATIONS FAXED TO [facility] ON [address] PER PT REQUEST. NEW MEDICATIONS AND DOSE CHANGES REVIEWED WITH PT AND HE VERBALIZED UNDERSTANDING. IVS REMOVED. PT ABLE TO DRESS HIMSELF. PT'S SON CAME AND PICKED HIM UP AND KATELYNN HELPED PT OUT IN WC.
== END 2022-02-24 10:33 | disposition home or self-care (01) | DRG 280 ==
LOC: ER 23:06 → PCU 23:07 → ER 02-21 00:51 → PCU 02-21 00:51
PROVIDERS: Internal Medicine Cardiovascular Disease; Student in an Organized Health Care Education/Training Program; ADMIT Internal Medicine
DX: I21.4 Non-ST elevation (NSTEMI) myocardial infarction (principal); I50.43 Acute on chronic combined systolic (congestive) and diastolic (congestive) heart failure; I48.19 Other persistent atrial fibrillation; I31.3 Pericardial effusion (noninflammatory); F14.90 Cocaine use, unspecified, uncomplicated; I25.10 Atherosclerotic heart disease of native coronary artery without angina pectoris; F15.90 Other stimulant use, unspecified, uncomplicated; M19.90 Unspecified osteoarthritis, unspecified site; Z95.5 Presence of coronary angioplasty implant and graft; Z87.891 Personal history of nicotine dependence; Z79.01 Long term (current) use of anticoagulants; Z79.899 Other long term (current) drug therapy
CPT/HCPCS: 36415; 71045; 80048; 80053; 80162; 83880; 84484; 85014; 85018; 85025; 85049; 85520; 85610; 85730; 93005; 93010; 93306; 94760; 96361; 96374; 96375; 96376; 99285-25; A9270; G0378; J0282; J1160; J1162; J1170; J1644; J2270; J3010; J7030; J7040; J7060

== ENCOUNTER 2025-01-06 08:08 | Emergency (ER) | payer OTHER ==
[~2025-01-06] VITALS: Ht 185.4 cm; Wt 122.5 kg
[~2025-01-06 08:08] MED LIST changes: +ATOR80 PO; +CLOP75 PO; +COLCHICINE0.6 MG PO; +DIGOX250 MCG PO; +Isosorbide Mono30 MG PO; +METO100 PO
[2025-01-06] MEDS ORDERED: NEXLIZET 180-11 EACH (08:54)
[2025-01-06] MEDS ORDERED: XARELTO20 M1 (08:54)
[2025-01-06 10:19] LABS: BASOPHILS ABSOLUTE AUTO 0.08 K/mm3 (0.00-0.23); BASOPHILS PERCENT AUTO 1 % (0-2); EOSINOPHILS ABSOLUTE AUTO 0.09 K/mm3 (0.00-0.68); EOSINOPHILS PERCENT AUTO 1 % (0-6); Hematocrit 47.7 % (37.0-53.0); Hemoglobin 17.4 g/dL (13.5-17.5); IMMATURE GRAN ABSOLUTE AUTO 0.03 K/mm3 (0.00-0.10); IMMATURE GRAN PERCENT AUTO 0 % (0-1); LYMPHOCYTES ABSOLUTE AUTO 1.08 K/mm3 (0.84-5.20); LYMPHOCYTES PERCENT AUTO 16 % (21-46); MONOCYTES ABSOLUTE AUTO 0.62 K/mm3 (0.16-1.47); MONOCYTES PERCENT AUTO 9 % (4-13); Mean Corpuscular HGB 36.1 pg (26.0-34.0); Mean Corpuscular HGB Conc 36.5 g/dL (31.5-36.5); Mean Corpuscular Volume 99 fL (80-100); Mean Platelet Volume 11.6 fL (9.1-12.4); NEUTROPHILS ABSOLUTE AUTO 5.01 K/mm3 (1.96-9.15); NEUTROPHILS PERCENT AUTO 73 % (41-73); Platelet Count 214 K/mm3 (150-400); RDW Coefficient Variation 11.3 % (11.7-14.2); RDW Standard Deviation 41.3 fL (35.1-46.3); Red Blood Cell Count 4.82 M/mm3 (4.30-5.90); White Blood Cell Count 6.91 K/mm3 (4.00-11.30)
[2025-01-06 10:57] LABS: Albumin, Blood 3.5 g/dL (3.4-5.0); Albumin/Globulin Ratio 0.9 (0.8-1.8); Bilirubin, Total 1.5 mg/dL (0.1-1.0); Bun/Creatinine Ratio 9.4 (12.0-20.0); Calcium, Blood 8.8 mg/dL (8.5-10.1); Creatinine, Blood 1.06 mg/dL (0.60-1.20); Globulin, Blood 3.9 g/dL (2.2-4.0); Potassium, Blood 3.8 mmol/L (3.5-5.5); Total Protein, Blood 7.4 g/dL (6.4-8.2)
[2025-01-06 13:26] VITALS: BP 154/107
== END 2025-01-06 13:26 | disposition home or self-care (01) ==
LOC: ER 08:08
PROVIDERS: Physician Assistant
DX: K27.4 Chronic or unspecified peptic ulcer, site unspecified, with hemorrhage (principal); I48.91 Unspecified atrial fibrillation; E78.5 Hyperlipidemia, unspecified; I50.40 Unspecified combined systolic (congestive) and diastolic (congestive) heart failure; I25.10 Atherosclerotic heart disease of native coronary artery without angina pectoris; Z95.5 Presence of coronary angioplasty implant and graft; Z79.01 Long term (current) use of anticoagulants; Z79.82 Long term (current) use of aspirin; Z79.899 Other long term (current) drug therapy
CPT/HCPCS: 76705; 80053; 82272; 83690; 85025; 86850; 86900; 86901; 93005; 93010; 99284-25

== ENCOUNTER 2025-04-09 06:28 | Day surgery (SDC) | payer OTHER ==
[~2025-04-09] VITALS: Ht 180.3 cm; Wt 123.7 kg
[~2025-04-09 06:28] MED LIST changes: +Carvedilol12.5 MG PO; +Crestor40 MG PO; +ENTRESTO 97 MG1 EACH PO; +METF500 PO; +MULTI-VITAMIN1 EAC2 PO; +NEXLIZET 180-11 EACH; +NEXLIZET 180-11 EACH PO; +XARELTO20 M1
[2025-04-09] MEDS ORDERED: IBUP400 PO (07:40)
[2025-04-09 07:51] VITALS: BP 121/92
[2025-04-09] MEDS ORDERED: Benzocaine Oral Spray 0.5ML UD ONE (08:24)
--- NOTE | 2025-04-09 08:25 | NUR ---
04/09/25 0824 Katty Quintero MONITOR INTACT WITH CONTINUOUS PULSE OXIMETRY, CONTINUOUS END TITAL CO2, 3-LEAD EKG AND INTERMITTENT BLOOD PRESSURE.
[2025-04-09 09:07] VITALS: BP 98/76
[2025-04-09 09:26] VITALS: BP 109/71
--- NOTE | 2025-04-09 10:02 | NUR ---
0995 PROTONIX RX PHONED INTO [email or web address] IN [place]
== END 2025-04-09 09:45 | disposition home or self-care (01) ==
LOC: ORSCMMR 06:28 → ORD 08:00 → ORSCMMR 09:45
PROVIDERS: Internal Medicine Gastroenterology
PROC: 0DBN8ZX Excision of Sigmoid Colon, Via Natural or Artificial Opening Endoscopic, Diagnostic (ICD-10-PCS; principal; 2025-04-09 08:00)
PROC: 0DBH8ZX Excision of Cecum, Via Natural or Artificial Opening Endoscopic, Diagnostic (ICD-10-PCS; principal; 2025-04-09 08:00)
PROC: 0DBL8ZX Excision of Transverse Colon, Via Natural or Artificial Opening Endoscopic, Diagnostic (ICD-10-PCS; principal; 2025-04-09 08:00)
PROC: 0DB98ZX Excision of Duodenum, Via Natural or Artificial Opening Endoscopic, Diagnostic (ICD-10-PCS; principal; 2025-04-09 08:00)
PROC: 0DB48ZX Excision of Esophagogastric Junction, Via Natural or Artificial Opening Endoscopic, Diagnostic (ICD-10-PCS; principal; 2025-04-09 08:00)
PROC: 0DB68ZX Excision of Stomach, Via Natural or Artificial Opening Endoscopic, Diagnostic (ICD-10-PCS; principal; 2025-04-09 08:00)
DX: K62.5 Hemorrhage of anus and rectum (principal); D12.3 Benign neoplasm of transverse colon; D12.0 Benign neoplasm of cecum; B37.81 Candidal esophagitis; K29.70 Gastritis, unspecified, without bleeding; Z87.11 Personal history of peptic ulcer disease; E11.9 Type 2 diabetes mellitus without complications; E78.00 Pure hypercholesterolemia, unspecified; I48.0 Paroxysmal atrial fibrillation; I25.2 Old myocardial infarction; I25.10 Atherosclerotic heart disease of native coronary artery without angina pectoris; Z87.891 Personal history of nicotine dependence; Z79.01 Long term (current) use of anticoagulants; Z79.84 Long term (current) use of oral hypoglycemic drugs; Z79.899 Other long term (current) drug therapy
CPT/HCPCS: 82947; 88305; 88312; 88342; A9270; J2704; J7120

== ENCOUNTER → 2025-04-22 | Outpatient (CLI) | payer OTHER ==
[~2025-04-22] MED LIST changes: +IBUP400 PO
[2025-04-22 18:02] LABS: Creatinine, Urine Random 250.0 mg/dL (27.00-270.00); Microalb/Creat Ratio UR, Rand 6.6 mg/g (0.000-30.000); Microalbumin, Random Urine 16.5 mg/L (0.000-20.000)
== END ==
LOC: LAB SHORT 15:26 → LAB 15:26
PROVIDERS: Family Medicine
DX: E11.69 Type 2 diabetes mellitus with other specified complication (principal); E78.5 Hyperlipidemia, unspecified
CPT/HCPCS: 82043; 82570

== ENCOUNTER 2025-08-29 10:01 | Day surgery (SDC) | payer OTHER ==
[~2025-08-29] VITALS: Ht 180.3 cm; Wt 125.8 kg
[~2025-08-29 10:01] MED LIST changes: +ALBU90OI INH; +PANT40 PO; +TRELEGY ELLIPT1 EACH INH
[2025-08-29] MEDS ORDERED: Benzocaine Oral Spray 0.5ML UD ONE (11:22)
[2025-08-29 11:26] VITALS: BP 109/69
[2025-08-29] MEDS ORDERED: Metoprolol Tartrate 1 MG/ML 5 ML VIAL IV ONE (11:30)
--- NOTE | 2025-08-29 11:32 | NUR ---
PT AFIB-RVR ON ADMIT, EKG DONE PER ANESTHESIA (MAY)
--- NOTE | 2025-08-29 11:39 | NUR ---
08/29/25 1139 Yusef Martin MONITOR INTACT WITH CONTINUOUS PULSE OXIMETRY, CONTINUOUS END TITAL CO2, 3-LEAD EKG AND INTERMITTENT BLOOD PRESSURE.O2 VIA POM INTACT THROUGHOUT SEDATION/PROCEDURE.
[2025-08-29 12:10] VITALS: BP 130/98
[2025-08-29 12:25] VITALS: BP 97/71
--- NOTE | 2025-08-29 12:49 | NUR ---
TO STEP POST PROCEDURE. DENIES PAIN, NAUSEA, SOB. REMAINS IN AFIB RATE 120S-130S. ASYMPTOMATIC, ANES/SURGEON AWARE. PT TO RESUME ALL HOME MEDS INCLUDING CARVEDILOL. VERBALIZED UNDERSTANDING. DC'D IV INTACT. DRESSED AT BEDSIDE. DC'D VIA WC TO PRIVATE CAR WITH MASTERCAM PROGRAMMER.
== END 2025-08-29 12:30 | disposition home or self-care (01) ==
LOC: ORSCMMR 10:01 → ORD 12:00 → ORSCMMR 12:00
PROVIDERS: Internal Medicine Gastroenterology
PROC: 0DB68ZX Excision of Stomach, Via Natural or Artificial Opening Endoscopic, Diagnostic (ICD-10-PCS; principal; 2025-08-29 11:30)
PROC: 0DB48ZX Excision of Esophagogastric Junction, Via Natural or Artificial Opening Endoscopic, Diagnostic (ICD-10-PCS; principal; 2025-08-29 11:30)
DX: K29.00 Acute gastritis without bleeding (principal); K31.7 Polyp of stomach and duodenum; K22.70 Barrett's esophagus without dysplasia; I25.10 Atherosclerotic heart disease of native coronary artery without angina pectoris; I48.0 Paroxysmal atrial fibrillation; E11.9 Type 2 diabetes mellitus without complications; I50.9 Heart failure, unspecified; Z85.51 Personal history of malignant neoplasm of bladder; E66.01 Morbid (severe) obesity due to excess calories; Z68.41 Body mass index [BMI] 40.0-44.9, adult; Z79.01 Long term (current) use of anticoagulants; Z79.84 Long term (current) use of oral hypoglycemic drugs; Z79.899 Other long term (current) drug therapy
CPT/HCPCS: 88305; 88341; 88342; 93005; 93010; A9270; J2704; J7120